=== PATIENT | male | born 1970 | race Caucasian/White ===

== ENCOUNTER → 2016-04-06 | Outpatient (CLI) | payer BC ==
[2016-04-06 16:31] LABS: APPEARANCE CLEAR/COLORLESS; RED CELL AREA COUNTED 18; RED CELL COUNT 13 /MM^3 (0-1); RED CELL DILUTION 1; WBC AREA COUNTED 18; WBC DILUTION 1; WHITE CELL COUNT 4 /MM^3 (0-5); WHITE CELL RAW COUNT 8
[2016-04-06 17:04] LABS: CSF EOSINOPHILS 0 % (0-25); MONO RAW COUNT 4; MONONUCLEAR WBC'S 100 % (50-90); POLYNUCLEAR WBC'S 0 % (0-3)
[2016-04-06 17:09] LABS: APPEARANCE (RECHECK) CLEAR/COLORLESS; CSF TUBE NUMBER (RECHECK) TUBE #1; RED CELL AREA COUNTED 18; RED CELL COUNT (RECHECK) 4 /MM^3 (0-1); RED CELL DILUTION 1
== END | disposition home or self-care (01) ==
LOC: RAD 14:47
PROVIDERS: Specialist
PROC: 009U3ZZ Drainage of Spinal Canal, Percutaneous Approach (ICD-10-PCS; principal; 2016-04-06)
DX: G35 Multiple sclerosis (principal)
CPT/HCPCS: 62270; 77003; 82164 90; 82945; 83873 90; 83916 90; 84157; 89051

== ENCOUNTER → 2016-09-07 | Outpatient (CLI) | payer BC | END | disposition home or self-care (01) | DX: R13.11 Dysphagia, oral phase (principal); R13.13 Dysphagia, pharyngeal phase | CPT/HCPCS: 92611 GN ==